=== PATIENT | female | born 1950 | race Caucasian/White ===

== ENCOUNTER 2018-02-20 11:40 | Emergency (ER) | payer MEDICARE ==
[2018-02-20] MEDS ORDERED: Lidocaine 1% with EPINEPHrine 1:100,000 20 ML MDV INFILT ONE (11:41)
[2018-02-20] MEDS ORDERED: Amoxicillin/Clavulanate K 875-125 MG Tab PO ONE (17:17)
[2018-02-20] MEDS ORDERED: Acetaminophen/HYDROcodone 325-5 MG Tab PO ONE (17:18)
[2018-02-20 18:22] VITALS: BP 130/82
--- NOTE | 2018-02-22 14:01 | ER ---
DATE SEEN: 02/20/2018 HISTORY OF PRESENT ILLNESS: This is a 67-year-old woman, who comes in with a history of trying to remove a dog dish from her son"s Rottweiler while the Rottweiler was drinking. The Rottweiler became upset, and bit her on the left forearm. She has 4 significant lacerations. The patient has a history of mild obesity. Tetanus is up-to-date. She has 4 lacerations in a parallel fashion of 7 cm, 5 cm, 3 cm, and 3cm. PAST MEDICAL HISTORY: GERD, dyslipidemia, and hypertension. MEDICATIONS: 1. Simvastatin. 2. Omeprazole. 3. Losartan/hydrochlorothiazide (Hyzaar) 50/12.5. ALLERGIES: Grapefruit, oranges, and pineapple. Otherwise negative. PHYSICAL EXAMINATION: VITAL SIGNS: Blood pressure 124/73, heart rate 68, respirations 18, 95% pulse oximetry on room air, and 36.9 degrees centigrade. This is an 83.4 kg woman with a BMI of 37.2 kg/m2 (suggesting mild obesity). GENERAL: Comes in with a left forearm laceration. HEENT: Without abnormality. PERRLA intact. The patient wears glasses. Hearing is slightly decreased. LUNGS: Clear without rales, rhonchi, or wheezes. HEART: S1 and S2. No murmur. ABDOMEN: Soft. No guarding. No abdominal discomfort. The patient is short stature. EXTREMITIES: Without edema. Left upper extremity, radial and ulnar pulses are intact. Capillary refill of the fingers is normal. Flexion and extension of the elbow is normal, and forearm there is mild discomfort. Dorsum of the forearm has 4 lacerations, each of which are 7 cm, 5 cm, 3 cm, and another 3 cm. EMERGENCY ROOM COURSE: Her wounds extend down through the subcutaneous tissue down to the muscle. The muscle is lacerated. The wound was aggressively lavaged under a surgical scrub sink with running water and associated with Arcadio- Meghan scrub brush up to 8 minutes. Then it was removed and dried and then returned to the table, and then cleansed again and injected with lidocaine and epinephrine with infiltration. Once this was completed, she was again washed and cleansed, then rinsed, and then the subcutaneous tissue was reapproximated with 22 stitches of interrupted 4-0 Vicryl and a total of 18 surface stitches of 4-0 Ethilon. No complications. The patient received antibiotic Keflex 500 mg t.i.d. Elevate her arm. Advised to keep cool packs to the base of the swelling to decrease swelling and improve circulation. The patient is advised potential of the wound taking but could cause sluff, but I feel patient will do well. The patient is not a smoker. PLAN: The patient is to follow up with doctor in 3 to 5 days if there is any question, otherwise in 7 days. Because 5% to 10% of the dogs have Pasteurella multocida infection, the patient was treated with Augmentin 875 mg b.i.d., 20 tablets. DIAGNOSIS: Multiple lacerations with double-layered closure of all the lacerations. /[id number] BERTRAND/MERRICK CHAUDHRY
== END 2018-02-20 17:45 | disposition home or self-care (01) ==
LOC: FB.ED 11:40
DX: S51.852A Open bite of left forearm, initial encounter (principal); W54.0XXA Bitten by dog, initial encounter; K21.9 Gastro-esophageal reflux disease without esophagitis; E78.5 Hyperlipidemia, unspecified; Z91.018 Allergy to other foods; I10 Essential (primary) hypertension; Z79.899 Other long term (current) drug therapy
CPT/HCPCS: 12035; 99283; A9270; 12002

== ENCOUNTER 2020-07-11 06:40 | Inpatient (IN) | payer MEDICARE ==
[2020-07-11] MEDS ORDERED: ceFAZolin 2 GM in Premix Bag 1 BAG IV ONE (08:00)
[2020-07-11] MEDS: Lactated Ringers 1,000 ML IV SCH ×2 (08:00→18:20)
[2020-07-11] MEDS ORDERED: Rocuronium 50 MG/5 ML Vial IV ONE ×2 (08:30→14:00)
[2020-07-11] MEDS ORDERED: Acetaminophen 1,000 MG/100 ML Infusion Bottle Premix IV ONE (08:30)
[2020-07-11] MEDS ORDERED: fentaNYL 100 MCG/2 ML SDV IV ONE (08:30)
[2020-07-11] MEDS ORDERED: Ondansetron 4 MG/2 ML SDV IVPUSH ONE (08:30)
[2020-07-11] MEDS ORDERED: Midazolam 1 MG/ML 2 ML SDV IV ONE ×2 (08:30→14:00)
[2020-07-11] MEDS ORDERED: HYDROmorphone 2 MG/ML SDV IV ONE (08:30)
[2020-07-11] MEDS ORDERED: Propofol 200 MG/20 ML SDV IV ONE ×2 (08:30→14:00)
[2020-07-11] MEDS ORDERED: Lactated Ringers 1,000 ML IV ONE ×2 (08:30→12:20)
[2020-07-11] MEDS ORDERED: Sugammadex Sodium 200 MG/2 ML VIAL IV ONE ×2 (08:30→14:00)
[2020-07-11] MEDS ORDERED: Ketorolac 30 MG/ML SDV IVPUSH ONE (08:30)
[2020-07-11] MEDS ORDERED: Succinylcholine 200 MG/10 ML MDV IV ONE ×2 (08:30→14:00)
[2020-07-11] MEDS ORDERED: Lidocaine 1% with EPINEPHrine 1:100,000 20 ML MDV INJECT ONE ×2 (08:40→12:56)
[2020-07-11] MEDS ORDERED: Bupivacaine 0.5% 30 ML SDV INJECT ONE ×2 (08:40→12:56)
--- NOTE | 2020-07-11 09:17 | PCM.OPNOTE ---
- General Post-Op/Procedure Note Date of Surgery/Procedure: 07/11/20 Operative Procedure(s): incisional hernia repair with mesh Findings: main defect 6 cm several smaller ones noted for total length of 8 cm Pre Op Diagnosis: incisional hernia Post-Op Diagnosis: Same Anesthesia Technique: General ET Tube, Local (4 ml 1 % lido with epi/0.5% buvipicaine) Primary Surgeon: Jose Mckenna Anesthesia Provider: Dayanara Bourgeois Pathology: none EBL in mLs: 5 Complications: None Condition: Good Free Text/Narrative:: see dictation
[2020-07-11] MEDS ORDERED: Sodium Chloride 0.9% 500 ML IV ONE (12:20)
[2020-07-11] MEDS ORDERED: ePHEDrine 50 MG/ML SDV IV ONE (12:20)
[2020-07-11] MEDS ORDERED: Sodium Chloride 0.9% 1,000 ML IV ONE (12:20)
[2020-07-11] MEDS ORDERED: ceFAZolin 1 GM Vial IV ONE (13:20)
[2020-07-11] MEDS ORDERED: Naloxone 0.4 MG/ML SDV IVPUSH PRN (14:09)
[2020-07-11] MEDS ORDERED: Ondansetron 4 MG/2 ML SDV IVPUSH PRN (14:09)
--- NOTE | 2020-07-11 14:17 | PCM.OPNOTE ---
- General Post-Op/Procedure Note Date of Surgery/Procedure: 07/11/20 Operative Procedure(s): ex lap with removal of mesh. removal of omentum. primary closure Findings: appeared to have had an omental bleed which had stopped. Mesh was removed. Pre Op Diagnosis: post op bleeding Post-Op Diagnosis: omental bleed Anesthesia Technique: General ET Tube, Local (18 ml 1 % lido with epi) Primary Surgeon: Jose Mckenna Anesthesia Provider: Dayanara Bourgeois Pathology: none sent EBL in mLs: 300 (old blood ) Complications: None Condition: Good
--- NOTE | 2020-07-11 14:33 | OR ---
DATE OF OPERATION: 07/11/2020 SURGEON: Jose Mckenna MD PROCEDURE PERFORMED: Incisional hernia repair. PREOPERATIVE DIAGNOSIS: Incisional hernia. POSTOPERATIVE DIAGNOSIS: Incisional hernia. INDICATIONS FOR PROCEDURE: Mrs. Uriostegui is a 69-year-old white female, who is status post a nephrectomy for renal cancer. She has developed an incisional hernia at the specimen removal site. She was offered and accepted repair. INTRAOPERATIVE FINDINGS: The main defect itself measured 6 cm. There were several smaller areas that had bridges of normal fascia that, when connected, the total defect measured 8 cm in diameter. This was repaired with a Ventrio ST hernia patch, reference #[id number], lot #[id number], with an expiration date of 01/05/2021, and this was a 13.8 x 17.8 cm oval hernia patch. DESCRIPTION OF PROCEDURE: After an excellent general anesthetic was administered via endotracheal tube, the patient was prepped and draped in the usual sterile manner. 4 mL of a 1:1 mixture was used to infiltrate the planned incision site. A 10 cm incision was then made using a #10 scalpel blade. The underlying subcu fat was divided using electrocautery, and the main hernia sac was exposed. Careful dissection was carried out, dissecting the hernia sac down to the midline fascia. The sac was opened, and the fascia was grasped. The adhered fat was removed from the hernia sac, and the hernia sac was then transected from the anterior abdominal wall. This allowed us to place clamps on the remaining fascia and carefully mobilize and free up the attached omentum from the anterior abdominal wall, giving us a good clean fascia to which to attach our mesh. Inferiorly, there were several Macanese cheese-like lesions that were in the fascia which were opened up. After completely mobilizing and cleaning off the fat from the anterior abdominal wall, the patch was then inserted into the patient's peritoneal cavity. This was then tacked into position using the Stat Tacker. The fascial defect was then closed with a running 0 Prolene, incorporating the mesh as well, and in the process of closing this, we did use more tackers to tack the mesh to the anterior abdominal wall as we closed the fascial defect. The fat was then approximated with a running 3-0 Vicryl. Joshua were used to close the skin. Needle, sponge, and instrument counts were reported as correct. The patient was taken to the recovery room in good condition. /[id number] /MODTrudy
--- NOTE | 2020-07-11 15:15 | OR ---
DATE OF OPERATION: 07/11/2020 SURGEON: Jose Mckenna MD PROCEDURES PERFORMED: Exploratory laparotomy, removal of previously placed mesh, and excision of omentum. PREOPERATIVE DIAGNOSIS: Postoperative bleeding. POSTOPERATIVE DIAGNOSIS: Postoperative bleeding. INDICATIONS FOR PROCEDURE: Ms. Uriostegui is a 69-year-old white female who underwent an incisional hernia repair earlier today. Postoperative course has been notable for some pain and difficulty keeping her pain under control. As she was getting up to go to the bathroom this afternoon, she was noted to have a gush of blood from her incision site, as well as development of some hypotension. On opening the wound in the same-day surgery area, she was noted to have some active oozing from the wound itself that did not appear to be superficial. She was therefore taken back to the operating room. She also had a small bout of hypotension, which responded nicely to a bolus of normal saline, as well as some ephedrine, prior to taking her back to the operating room. Please see the anesthesia note for further details. DESCRIPTION OF OPERATION: After an excellent general anesthetic was administered via endotracheal tube, the patient was prepped and draped in usual sterile manner. The wound, which had been packed, had the packing removed prior to prepping the wound. We started the procedure by opening up the fascia, which had been closed with 0 Prolene. There was some oozing that I noted. Of note, while the mesh had been tacked to the anterior abdominal wall on the left lateral side, this appeared to have avulsed, possibly when the patient was shifting, and she had some omentum that had managed to work its way between the mesh and the anterior abdominal wall. On noting this, we elected to completely remove the mesh, which was done without difficulty. At this point, we noted the omentum underneath with what appeared to be old clot. The omentum was mobilized and delivered out of the abdominal cavity, and careful inspection revealed several points that appeared to have been bleeding, but were not actively bleeding. Using the LigaSure, this section of the omentum was completely excised. We then turned our attention to the anterior abdominal cavity, where old blood was removed, and the remainder of the abdominal cavity was irrigated until clear and then packed with clean lap pads. Further inspection revealed that there was no further evidence of any bleeding. We elected at this point not to place the mesh, as I was concerned about possible infection of the mesh. Given the marginality of her fascia and the fact that we did not have any readily available BioMesh to use an overlay or in the repair, we elected to place some retention sutures to aid with closure. This was done by placing 4 interrupted #1 Ethibonds full thickness through the abdominal wall, dividing the incision into quarters. The fascia, such as that was, was then approximated to itself with a running #1 PDS. On the right lateral side, the quality of the fascia was marginal at best, but we were able to get what appeared to be good approximation of fascial tissue running suture together. Having completed this, we then tied the retention sutures and placed the knots into the bolsters and then the skin was closed with interrupted carlotta. Needle, sponge, and instrument counts were reported as correct prior to closure of the skin. 18 mL of a 1:1 mixture of 1% lidocaine with epinephrine and 0.5% bupivacaine was used to infiltrate the fascia wall as well to help with postop pain control. /[id number] /MODL
[2020-07-11] MEDS: fentaNYL/Normal Saline 300 MCG/30 ML PCA Vial IV SCH (16:08)
[2020-07-11] MEDS: Sodium Chloride 0.9% 10 ML Syringe FLUSH PRN ×2 (16:27→16:28)
[2020-07-12] MEDS: Lactated Ringers 1,000 ML IV SCH ×3 (02:06→18:36)
--- NOTE | 2020-07-12 08:18 | PCM.SURGPN ---
- General Info Date of Service: 07/12/20 POD#: 1 Functional Status: Reports: Ambulating, Urinating - Review of Systems General: Reports: No Symptoms Gastrointestinal: Reports: Abdominal Pain - Patient Data Vitals - Most Recent: Last Vital Signs Temp 98.5 F 07/12/20 05:00 Pulse 96 07/12/20 05:00 Resp 20 07/12/20 05:00 BP 131/74 07/12/20 05:00 Pulse Ox 97 07/12/20 05:00 Weight - Most Recent: 88.632 kg I&O - Last 24 Hours: Intake & Output 07/11/20 07/12/20 07/12/20 22:59 06:59 14:59 Intake Total 572 763 Output Total 450 400 Balance 122 363 Lab Results Last 24 Hrs: Laboratory Results - last 24 hr 07/11/20 07/11/20 07/12/20 Range/Units 12:58 12:58 05:50 WBC 18.1 H (4.5-12.0) X10-3/uL RBC 2.91 L (3.23-5.20) x10(6)uL Hgb 9.5 L 8.3 L (11.5-15.5) g/dL Hct 29.6 L 25.1 L (30.0-51.3) % MCV 86.5 (80-96) fL MCH 28.7 (27.7-33.6) pg MCHC 33.2 (32.2-35.4) g/dL RDW 14.0 (11.5-15.5) % Plt Count 271 (125-369) X10(3)uL MPV 7.4 (7.4-10.4) fL Add Manual Diff Yes Neutrophils % (Manual) 86 H (46-82) % Lymphocytes % (Manual) 11 L (13-37) % Monocytes % (Manual) 1 L (4-12) % Eosinophils % (Manual) 2 (0-5) % Sodium 141 (135-145) mmol/L Potassium 4.2 (3.5-5.3) mmol/L Chloride 105 (100-110) mmol/L Carbon Dioxide 27 (21-32) mmol/L BUN 16 (7-18) mg/dL Creatinine 1.9 H (0.55-1.02) mg/dL Est Cr Clr Drug Dosing 19.51 mL/min Estimated GFR (MDRD) 26 L (>60) BUN/Creatinine Ratio 8.4 L (9-20) Glucose 166 H (80-116) mg/dL Calcium 8.2 L (8.6-10.2) mg/dL Med Orders - Current: Current Medications Hydrocodone Bitart/Acetaminophen ([place] 325-5 Mg) 1 tab PO Q4H PRN PRN Reason: Pain Fentanyl Citrate (Fentanyl In Ns 300 Mcg/30 Ml Medical Claims Representative) 0 mcg IV ASDIRECTED [facility]; Pr otocol Last Admin: 07/11/20 16:08 Dose: 300 mcg Documented by: Hydroxyzine Pamoate (Vistaril) 50 mg PO ONETIME PRN PRN Reason: Pain Lactated Ringer's (Ringers, Lactated) 1,000 mls @ 125 mls/hr IV ASDIRECTED [facility] Last Admin: 07/12/20 02:06 Dose: 125 mls/hr Documented by: Naloxone HCl (Narcan) 0.4 mg IVPUSH Q2M PRN PRN Reason: Respiratory Distress Ondansetron HCl (Zofran) 4 mg IVPUSH Q6H PRN PRN Reason: Nausea/Vomiting Sodium Chloride (Saline Flush) 10 ml FLUSH ASDIRECTED PRN PRN Reason: Keep Vein Open Last Admin: 07/11/20 16:28 Dose: 10 ml Documented by: Discontinued Medications Bupivacaine HCl (Marcaine 0.5%) 10 ml INJECT .STK-MED ONE Stop: 07/11/20 08:41 Last Admin: 07/11/20 08:40 Dose: 10 ml Documented by: Bupivacaine HCl (Marcaine 0.5%) 10 ml INJECT .STK-MED ONE Stop: 07/11/20 12:57 Last Admin: 07/11/20 12:56 Dose: 10 ml Documented by: Cefazolin Sodium/Dextrose 2 gm (/ Premix) 50 mls @ 100 mls/hr IV ONETIME ONE Stop: 07/11/20 08:29 Last Admin: 07/11/20 08:16 Dose: 100 mls/hr Documented by: Lidocaine/Epinephrine (Xylocaine 1% With Epinephrine 1:100,000) 10 ml INJECT .STK-MED ONE Stop: 07/11/20 08:41 Last Admin: 07/11/20 08:40 Dose: 10 ml Documented by: Lidocaine/Epinephrine (Xylocaine 1% With Epinephrine 1:100,000) 10 ml INJECT .STK-MED ONE Stop: 07/11/20 12:57 Last Admin: 07/11/20 12:56 Dose: 10 ml Documented by: - Exam Wound/Incisions: Dressing Dry and Intact General: Alert, Oriented, Cooperative, Mild Distress Lungs: Clear to Auscultation, Normal Respiratory Effort Cardiovascular: Regular Rate, Regular Rhythm GI/Abdominal Exam: Normal Bowel Sounds, Tender (over incision site ) Sepsis Event Note - Evaluation Sepsis Screening Result: No Definite Risk - Focused Exam Vital Signs: Vital Signs Temp Pulse Resp BP Pulse Ox Pulse Ox 07/12/20 05:00 98.5 F 96 20 131/74 97 07/12/20 01:40 98.4 F 96 18 128/78 95 07/11/20 23:15 97.9 F 87 18 129/84 93 L 07/11/20 21:00 92 L 07/11/20 20:30 98 F 85 20 144/79 H 93 L 93 L - Problem List & Annotations (1) Incisional hernia of anterior abdominal wall without obstruction or gangrene SNOMED Code(s): 807036729 Code(s): K43.2 - INCISIONAL HERNIA WITHOUT OBSTRUCTION OR GANGRENE Status: Acute Current Visit: Yes - Problem List Review Problem List Initiated/Reviewed/Updated: Yes - My Orders Last 24 Hours: Active Orders 24 hr Category Date Time Status Ambulate [RC] .TID Care 07/11/20 14:11 Active Communication Order [RC] 00,08,16 Care 07/11/20 14:09 Active Intake and Output [RC] 06,14,22 Care 07/11/20 14:11 Active Notify Provider Vital Signs [RC] PRN Care 07/11/20 14:12 Active Notify Provider [RC] PRN Care 07/11/20 14:09 Active Oxygen Therapy [RC] 00,08,16 Care 07/11/20 14:10 Active PATIENT SERVICES COORDINATOR Record [RC] PER UNIT ROUTINE Care 07/11/20 14:09 Active Pulse Oximetry [RC] CONTINUOUS Care 07/11/20 14:09 Active RT Incentive Spirometry [RC] Q2HWA Care 07/11/20 14:09 Active Ready for Discharge [RC] .PRN Care 07/11/20 09:19 Active Vital Signs [RC] Q4HR Care 07/11/20 14:10 Active Acetaminophen/HYDROcodone [[place] 325-5 MG] Med 07/11/20 09:21 Active 1 tab PO Q4H PRN Naloxone [Narcan] Med 07/11/20 14:09 Active 0.4 mg IVPUSH Q2M PRN Ondansetron [Zofran] Med 07/11/20 14:09 Active 4 mg IVPUSH Q6H PRN fentaNYL/Normal Saline [fentaNYL in NS 300 MCG/30 ML Med 07/11/20 14:30 Active PATIENT SERVICES COORDINATOR] See Protocol IV ASDIRECTED hydrOXYzine pamoate [Vistaril] Med 07/11/20 09:21 Active 50 mg PO ONETIME PRN Abdominal Binder [OM.PC] Per Unit Routine Oth 07/11/20 14:11 Ordered Medication Discontinuation Instructions [OM.PC] Stat Oth 07/11/20 14:09 Ordered Medication Orders Hydrocodone Bitart/Acetaminophen ([place] 325-5 Mg) 1 tab PO Q4H PRN PRN Reason: Pain Fentanyl Citrate (Fentanyl In Ns 300 Mcg/30 Ml Medical Claims Representative) 0 mcg IV ASDIRECTED [facility]; Protocol Last Admin: 07/11/20 16:08 Dose: 300 mcg Documented by: SANDRA Hydroxyzine Pamoate (Vistaril) 50 mg PO ONETIME PRN PRN Reason: Pain Lactated Ringer's (Ringers, Lactated) 1,000 mls @ 125 mls/hr IV ASDIRECTED [facility] Last Admin: 07/12/20 02:06 Dose: 125 mls/hr Documented by: Infusion: 07/12/20 02:06 Dose: 125 mls/hr Documented by: Admin: 07/11/20 18:20 Dose: 125 mls/hr Documented by: Infusion: 07/11/20 16:00 Dose: 125 mls/hr Documented by: Admin: 07/11/20 08:00 Dose: 125 mls/hr Documented by: HOLLIE Naloxone HCl (Narcan) 0.4 mg IVPUSH Q2M PRN PRN Reason: Respiratory Distress Ondansetron HCl (Zofran) 4 mg IVPUSH Q6H PRN PRN Reason: Nausea/Vomiting Sodium Chloride (Saline Flush) 10 ml FLUSH ASDIRECTED PRN PRN Reason: Keep Vein Open Last Admin: 07/11/20 16:28 Dose: 10 ml Documented by: [id number] Admin: 07/11/20 16:27 Dose: 10 ml Documented by: MILDRED - Assessment Assessment (Free Text/Narrative):: stable exam. hungry today pain control still appears to be an issue
[2020-07-12] MEDS: fentaNYL/Normal Saline 300 MCG/30 ML PCA Vial IV SCH (15:01)
--- NOTE | 2020-07-12 16:58 | PCM.SN.2 ---
- Free Text/Narrative Note: Pt complains about pain but admits that she is not using the ACCESS SPECIALIST. apparently has gotten up to urinate. It was stressed the importance of needing to move which will help her to feel better. It was also stressed that she need to use the ACCESS SPECIALIST to help with her pain.
[2020-07-12] MEDS ORDERED: LORazepam 2 MG/ML SDV IVPUSH PRN (17:00)
[2020-07-12] MEDS: Sodium Chloride 0.9% 10 ML Syringe FLUSH PRN (23:30)
[2020-07-13] MEDS: Lactated Ringers 1,000 ML IV SCH ×2 (02:55→15:32)
[2020-07-13] MEDS: fentaNYL/Normal Saline 300 MCG/30 ML PCA Vial IV SCH (04:05)
--- NOTE | 2020-07-13 08:23 | PCM.SURGPN ---
- General Info Date of Service: 07/13/20 POD#: 2 Functional Status: Reports: Pain Controlled, Tolerating Diet, Ambulating, Urinating - Review of Systems General: Reports: Other (low grade today ) Pulmonary: Reports: No Symptoms Gastrointestinal: Reports: Abdominal Pain (much better than yesterday ) - Patient Data Vitals - Most Recent: Last Vital Signs Temp 98.8 F 07/13/20 04:00 Pulse 88 07/13/20 04:00 Resp 20 07/13/20 04:00 BP 124/73 07/13/20 04:00 Pulse Ox 92 L 07/13/20 04:00 Weight - Most Recent: 88.632 kg I&O - Last 24 Hours: Intake & Output 07/12/20 07/13/20 07/13/20 22:59 06:59 14:59 Intake Total 1090 1075 Output Total 400 300 Balance 690 775 Med Orders - Current: Current Medications Hydrocodone Bitart/Acetaminophen ([place] 325-5 Mg) 1 tab PO Q4H PRN PRN Reason: Pain Fentanyl Citrate (Fentanyl In Ns 300 Mcg/30 Ml Client Executive) 0 mcg IV ASDIRECTED [facility]; Protocol Stop: 07/13/20 10:00 Last Admin: 07/13/20 04:05 Dose: 300 mcg Documented by: Hydroxyzine Pamoate (Vistaril) 50 mg PO ONETIME PRN PRN Reason: Pain Lactated Ringer's (Ringers, Lactated) 1,000 mls @ 50 mls/hr IV ASDIRECTED [facility] Last Admin: 07/13/20 02:55 Dose: 125 mls/hr Documented by: Lorazepam (Ativan) 1 mg IVPUSH Q6H PRN PRN Reason: Pain Naloxone HCl (Narcan) 0.4 mg IVPUSH Q2M PRN PRN Reason: Respiratory Distress Ondansetron HCl (Zofran) 4 mg IVPUSH Q6H PRN PRN Reason: Nausea/Vomiting Sodium Chloride (Saline Flush) 10 ml FLUSH ASDIRECTED PRN PRN Reason: Keep Vein Open Last Admin: 07/12/20 23:30 Dose: 10 ml Documented by: Discontinued Medications Bupivacaine HCl (Marcaine 0.5%) 10 ml INJECT .STK-MED ONE Stop: 07/11/20 08:41 Last Admin: 07/11/20 08:40 Dose: 10 ml Documented by: Bupivacaine HCl (Marcaine 0.5%) 10 ml INJECT .STK-MED ONE Stop: 07/11/20 12:57 Last Admin: 07/11/20 12:56 Dose: 10 ml Documented by: Cefazolin Sodium/Dextrose 2 gm (/ Premix) 50 mls @ 100 mls/hr IV ONETIME ONE Stop: 07/11/20 08:29 Last Admin: 07/11/20 08:16 Dose: 100 mls/hr Documented by: Lidocaine/Epinephrine (Xylocaine 1% With Epinephrine 1:100,000) 10 ml INJECT .STK-MED ONE Stop: 07/11/20 08:41 Last Admin: 07/11/20 08:40 Dose: 10 ml Documented by: Lidocaine/Epinephrine (Xylocaine 1% With Epinephrine 1:100,000) 10 ml INJECT .S TK-MED ONE Stop: 07/11/20 12:57 Last Admin: 07/11/20 12:56 Dose: 10 ml Documented by: - Exam Wound/Incisions: Healing Well, Dressing Dry and Intact. No: Erythema General: Alert, Oriented, Cooperative, No Acute Distress Lungs: Clear to Auscultation, Normal Respiratory Effort Cardiovascular: Regular Rate, Regular Rhythm GI/Abdominal Exam: Normal Bowel Sounds, Soft, Non-Tender Sepsis Event Note - Evaluation Sepsis Screening Result: No Definite Risk - Focused Exam Vital Signs: Vital Signs Temp Pulse Resp BP Pulse Ox Pulse Ox 07/13/20 04:00 98.8 F 88 20 124/73 92 L 07/12/20 23:56 92 L 07/12/20 23:52 99.0 F 90 20 112/67 92 L - Problem List & Annotations (1) Incisional hernia of anterior abdominal wall without obstruction or gangrene SNOMED Code(s): 556575638 Code(s): K43.2 - INCISIONAL HERNIA WITHOUT OBSTRUCTION OR GANGRENE Status: Acute Current Visit: Yes - Problem List Review Problem List Initiated/Reviewed/Updated: Yes - My Orders Last 24 Hours: Active Orders 24 hr Category Date Time Status Admission Status [Patient Status] [ADT] Routine ADT 07/12/20 11:02 Active Regular Diet [DIET] Diet 07/13/20 Lunch Ordered LORazepam [Ativan] Med 07/12/20 17:00 Active 1 mg IVPUSH Q6H PRN Medication Orders Hydrocodone Bitart/Acetaminophen ([place] 325-5 Mg) 1 tab PO Q4H PRN PRN Reason: Pain Fentanyl Citrate (Fentanyl In Ns 300 Mcg/30 Ml Client Executive) 0 mcg IV ASDIRECTED [facility]; Protocol Stop: 07/13/20 10:00 Last Admin: 07/13/20 04:05 Dose: 300 mcg Documented by: Admin: 07/12/20 15:01 Dose: 300 mcg Documented by: Admin: 07/11/20 16:08 Dose: 300 mcg Documented by: SANDRA Hydroxyzine Pamoate (Vistaril) 50 mg PO ONETIME PRN PRN Reason: Pain Lactated Ringer's (Ringers, Lactated) 1,000 mls @ 50 mls/hr IV ASDIRECTED [facility] Last Admin: 07/13/20 02:55 Dose: 125 mls/hr Documented by: Infusion: 07/13/20 02:36 Dose: 125 mls/hr Documented by: Admin: 07/12/20 18:36 Dose: 125 mls/hr Documented by: Infusion: 07/12/20 18:27 Dose: 125 mls/hr Documented by: Admin: 07/12/20 10:27 Dose: 125 mls/hr Documented by: Infusion: 07/12/20 10:06 Dose: 125 mls/hr Documented by: Admin: 07/12/20 02:06 Dose: 125 mls/hr Documented by: Infusion: 07/12/20 02:06 Dose: 125 mls/hr Documented by: Admin: 07/11/20 18:20 Dose: 125 mls/hr Documented by: Infusion: 07/11/20 16:00 Dose: 125 mls/hr Documented by: Admin: 07/11/20 08:00 Dose: 125 mls/hr Documented by: HOLLIE Lorazepam (Ativan) 1 mg IVPUSH Q6H PRN PRN Reason: Pain Naloxone HCl (Narcan) 0.4 mg IVPUSH Q2M PRN PRN Reason: Respiratory Distress Ondansetron HCl (Zofran) 4 mg IVPUSH Q6H PRN PRN Reason: Nausea/Vomiting Sodium Chloride (Saline Flush) 10 ml FLUSH ASDIRECTED PRN PRN Reason: Keep Vein Open Last Admin: 07/12/20 23:30 Dose: 10 ml Documented by: Admin: 07/11/20 16:28 Dose: 10 ml Documented by: Admin: 07/11/20 16:27 Dose: 10 ml Documented by: MILDRED - Assessment Assessment (Free Text/Narrative):: marked improvement on exam today. will continue to push ambulation and incentive spirometry. advance diet decrease IVF rate dc product management intern oral pain meds
[2020-07-13] MEDS: Acetaminophen/HYDROcodone 325-5 MG Tab PO PRN ×2 (12:54→17:21)
[2020-07-13] MEDS: Furosemide 20 MG Tab**OWN MED PO SCH (13:23)
[2020-07-13] MEDS: amLODIPine 5 MG Tab PO SCH (13:25)
[2020-07-13] MEDS: Metoprolol Succinate 25 MG Tab.ER PO SCH (13:25)
[2020-07-13] MEDS: OMEPRAZOLE 20 MG PO SCH (13:26)
[2020-07-13] MEDS: Anastrozole 1 MG Tab PO SCH (13:26)
[2020-07-13] MEDS ORDERED: Ketorolac 30 MG/ML SDV IVPUSH SCH (18:30)
[2020-07-13] MEDS: Ketorolac 15 MG/ML SDV IVPUSH SCH (18:56)
[2020-07-14] MEDS: Ketorolac 15 MG/ML SDV IVPUSH SCH ×4 (01:13→19:33)
[2020-07-14] MEDS: Acetaminophen/HYDROcodone 325-5 MG Tab PO PRN ×4 (01:18→19:48)
[2020-07-14] MEDS: Sodium Chloride 0.9% 10 ML Syringe FLUSH PRN ×4 (05:30→19:37)
[2020-07-14] MEDS: Metoprolol Succinate 25 MG Tab.ER PO SCH (08:27)
[2020-07-14] MEDS: Furosemide 20 MG Tab**OWN MED PO SCH (08:27)
[2020-07-14] MEDS: OMEPRAZOLE 20 MG PO SCH (08:27)
[2020-07-14] MEDS: Anastrozole 1 MG Tab PO SCH (08:27)
[2020-07-14] MEDS: amLODIPine 5 MG Tab PO SCH (08:27)
--- NOTE | 2020-07-14 09:21 | PCM.SURGPN ---
- General Info Date of Service: 07/14/20 POD#: 3 - Review of Systems General: Reports: Other (Pt reports feeling much better today. pain is under control. Her big issue is maintaining an adequate O2 saturation. Noted no to have much of a reserve on induction and she relates that this has been an issue. ) Pulmonary: Reports: Other (low o2 sats ). Denies: Shortness of Breath, Wheezing Cardiovascular: Reports: No Symptoms Gastrointestinal: Reports: No Symptoms - Patient Data Vitals - Most Recent: Last Vital Signs Temp 99.1 F 07/14/20 05:00 Pulse 83 07/14/20 08:27 Resp 20 07/14/20 05:00 BP 122/67 07/14/20 08:27 Pulse Ox 90 L 07/14/20 05:00 Weight - Most Recent: 88.632 kg I&O - Last 24 Hours: Intake & Output 07/13/20 07/14/20 07/14/20 22:59 06:59 14:59 Intake Total 430 480 Output Total 700 250 Balance -270 230 Med Orders - Current: Current Medications Hydrocodone Bitart/Acetaminophen ([place] 325-5 Mg) 1 tab PO Q4H PRN PRN Reason: Pain Last Admin: 07/14/20 08:26 Dose: 1 tab Documented by: Amlodipine Besylate (Norvasc) 5 mg PO DAILY [facility] Last Admin: 07/14/20 08:27 Dose: 5 mg Documented by: Anastrozole (Arimidex) 1 mg PO DAILY [facility] Last Admin: 07/14/20 08:27 Dose: 1 mg Documented by: Furosemide (Lasix) 20 mg PO DAILY [facility] Last Admin: 07/14/20 08:27 Dose: 20 mg Documented by: Hydroxyzine Pamoate (Vistaril) 50 mg PO ONETIME PRN PRN Reason: Pain Ketorolac Tromethamine (Toradol) 15 mg IVPUSH Q6H [facility] Stop: 07/18/20 18:46 Last Admin: 07/14/20 06:46 Dose: 15 mg Documented by: Lorazepam (Ativan) 1 mg IVPUSH Q6H PRN PRN Reason: Pain Metoprolol Succinate (Toprol Xl) 25 mg PO DAILY [facility] Last Admin: 07/14/20 08:27 Dose: 25 mg Documented by: Naloxone HCl (Narcan) 0.4 mg IVPUSH Q2M PRN PRN Reason: Respiratory Distress Omeprazole [ Omeprazole] 20 Mg Own Med 20 mg PO ACBREAKFAST [facility] Last Admin: 07/14/20 08:27 Dose: 20 mg Documented by: Ondansetron HCl (Zofran) 4 mg IVPUSH Q6H PRN PRN Reason: Nausea/Vomiting Sodium Chloride (Saline Flush) 10 ml FLUSH ASDIRECTED PRN PRN Reason: Keep Vein Open Last Admin: 07/14/20 05:30 Dose: 10 ml Documented by: Discontinued Medications Bupivacaine HCl (Marcaine 0.5%) 10 ml INJECT .STK-MED ONE Stop: 07/11/20 08:41 Last Admin: 07/11/20 08:40 Dose: 10 ml Documented by: Bupivacaine HCl (Marcaine 0.5%) 10 ml INJECT .STK-MED ONE Stop: 07/11/20 12:57 Last Admin: 07/11/20 12:56 Dose: 10 ml Documented by: Fentanyl Citrate (Fentanyl In Ns 300 Mcg/30 Ml Knitting Machine Tender) 0 mcg IV ASDIRECTED [facility]; Protocol Stop: 07/13/20 10:00 Last Admin: 07/13/20 04:05 Dose: 300 mcg Documented by: Lactated Ringer's (Ringers, Lactated) 1,000 mls @ 50 mls/hr IV ASDIRECTED [facility] Last Admin: 07/13/20 15:32 Dose: 50 mls/hr Documented by: Cefazolin Sodium/Dextrose 2 gm (/ Premix) 50 mls @ 100 mls/hr IV ONETIME ONE Stop: 07/11/20 08:29 Last Admin: 07/11/20 08:16 Dose: 100 mls/hr Documented by: Ketorolac Tromethamine (Toradol) 30 mg IVPUSH Q6H [facility] Stop: 07/18/20 18:24 Last Admin: 07/13/20 22:02 Dose: Not Given Documented by: Lidocaine/Epinephrine (Xylocaine 1% With Epinephrine 1:100,000) 10 ml INJECT .STK-MED ONE Stop: 07/11/20 08:41 Last Admin: 07/11/20 08:40 Dose: 10 ml Documented by: Lidocaine/Epinephrine (Xylocaine 1% With Epinephrine 1:100,000) 10 ml INJECT .STK-MED ONE Stop: 07/11/20 12:57 Last Admin: 07/11/20 12:56 Dose: 10 ml Documented by: - Exam Wound/Incisions: Healing Well, Dressing Dry and Intact General: Alert, Oriented, Cooperative, No Acute Distress Lungs: Clear to Auscultation, Normal Respiratory Effort Cardiovascular: Regular Rate, Regular Rhythm GI/Abdominal Exam: Normal Bowel Sounds, Soft, Tender (at incision site ) Skin: Warm, Dry, Intact Sepsis Event Note - Evaluation Sepsis Screening Result: No Definite Risk - Focused Exam Vital Signs: Vital Signs Temp Pulse Pulse Resp BP BP Pulse Ox 07/14/20 08:27 83 122/67 07/14/20 05:00 99.1 F 80 20 133/72 90 L 07/14/20 01:00 07/14/20 00:00 97.8 F 80 20 122/68 93 L Pulse Ox 07/14/20 08:27 07/14/20 05:00 07/14/20 01:00 95 07/14/20 00:00 - Problem List & Annotations (1) Incisional hernia of anterior abdominal wall without obstruction or gangrene SNOMED Code(s): 919999389 Code(s): K43.2 - INCISIONAL HERNIA WITHOUT OBSTRUCTION OR GANGRENE Status: Acute Current Visit: Yes - Problem List Review Problem List Initiated/Reviewed/Updated: Yes - My Orders Last 24 Hours: Active Orders 24 hr Category Date Time Status Daily Weight [Height and Weight] [RC] DAILY Care 07/14/20 09:10 Ordered Dressing Change [Wound Care] [RC] DAILY Care 07/14/20 09:10 Ordered Regular Diet [DIET] Diet 07/13/20 Lunch Active Chest 2V [CR] Routine Exams 07/14/20 09:09 Ordered BASIC METABOLIC PANEL,BMP [CHEM] Routine Lab 07/14/20 09:13 Ordered CBC WITH AUTO DIFF [HEME] Routine Lab 07/14/20 09:13 Ordered Anastrozole [Arimidex] Med 07/13/20 13:30 Active 1 mg PO DAILY Furosemide [Lasix] Med 07/13/20 09:00 Active 20 mg PO DAILY Ketorolac [Toradol] Med 07/13/20 18:45 Active 15 mg IVPUSH Q6H Metoprolol Succinate [Toprol XL] Med 07/13/20 13:30 Active 25 mg PO DAILY Omeprazole [Omeprazole] Med 07/13/20 13:30 Active 20 mg PO ACBREAKFAST amLODIPine [Norvasc] Med 07/13/20 13:30 Active 5 mg PO DAILY Convert IV to Saline Lock [OM.PC] Routine Oth 07/14/20 09:14 Ordered Medication Orders Hydrocodone Bitart/Acetaminophen ([place] 325-5 Mg) 1 tab PO Q4H PRN PRN Reason: Pain Last Admin: 07/14/20 08:26 Dose: 1 tab Documented by: Admin: 07/14/20 01:18 Dose: 1 tab Documented by: Admin: 07/13/20 17:21 Dose: 1 tab Documented by: Admin: 07/13/20 12:54 Dose: 1 tab Documented by: AURELIO Amlodipine Besylate (Norvasc) 5 mg PO DAILY [facility] Last Admin: 07/14/20 08:27 Dose: 5 mg Documented by: Admin: 07/13/20 13:25 Dose: 5 mg Documented by: AURELIO Anastrozole (Arimidex) 1 mg PO DAILY [facility] Last Admin: 07/14/20 08:27 Dose: 1 mg Documented by: Admin: 07/13/20 13:26 Dose: 1 mg Documented by: AURELIO Furosemide (Lasix) 20 mg PO DAILY [facility] Last Admin: 07/14/20 08:27 Dose: 20 mg Documented by: Admin: 07/13/20 13:23 Dose: 20 mg Documented by: [id number] Hydroxyzine Pamoate (Vistaril) 50 mg PO ONETIME PRN PRN Reason: Pain Ketorolac Tromethamine (Toradol) 15 mg IVPUSH Q6H [facility] Stop: 07/18/20 18:46 Last Admin: 07/14/20 06:46 Dose: 15 mg Documented by: Admin: 07/14/20 01:13 Dose: 15 mg Documented by: Admin: 07/13/20 18:56 Dose: 15 mg Documented by: BARBARA Lorazepam (Ativan) 1 mg IVPUSH Q6H PRN PRN Reason: Pain Metoprolol Succinate (Toprol Xl) 25 mg PO DAILY [facility] Last Admin: 07/14/20 08:27 Dose: 25 mg Documented by: [id number] Admin: 07/13/20 13:25 Dose: 25 mg Documented by: [id number] Naloxone HCl (Narcan) 0.4 mg IVPUSH Q2M PRN PRN Reason: Respiratory Distress Omeprazole [ Omeprazole] 20 Mg Own Med 20 mg PO ACBREAKFAST [facility] Last Admin: 07/14/20 08:27 Dose: 20 mg Documented by: [id number] Admin: 07/13/20 13:26 Dose: 20 mg Documented by: [id number] Ondansetron HCl (Zofran) 4 mg IVPUSH Q6H PRN PRN Reason: Nausea/Vomiting Sodium Chloride (Saline Flush) 10 ml FLUSH ASDIRECTED PRN PRN Reason: Keep Vein Open Last Admin: 07/14/20 05:30 Dose: 10 ml Documented by: Admin: 07/12/20 23:30 Dose: 10 ml Documented by: [id number] Admin: 07/11/20 16:28 Dose: 10 ml Documented by: Admin: 07/11/20 16:27 Dose: 10 ml Documented by: [id number] - Assessment Assessment (Free Text/Narrative):: O2 sats appears to be an issue thought clinically she is looking the best that she has looked in days. - Plan Plan (Free Text/Narrative):: CXR this am. wt to see if she may be in any failure.
--- NOTE | 2020-07-14 09:54 | PCM.SN.2 ---
- Free Text/Narrative Note: cxr demonstrates no evidence of infiltrate. fluid overload. may have some atelectasis rll field. will empirically start some albuterol nebs
[2020-07-14] MEDS ORDERED: Sodium Chloride 0.9% 1,000 ML IV SCH (10:45)
[2020-07-14] MEDS: Albuterol 0.083% 2.5 MG/3 ML Neb Soln NEB SCH ×4 (10:46→22:09)
[2020-07-14] MEDS ORDERED: Sodium Chloride 0.9% 250 ML IV SCH (13:30)
[2020-07-15] MEDS: Ketorolac 15 MG/ML SDV IVPUSH SCH ×4 (01:06→18:18)
[2020-07-15] MEDS: Acetaminophen/HYDROcodone 325-5 MG Tab PO PRN ×4 (01:43→21:59)
[2020-07-15] MEDS: Sodium Chloride 0.9% 10 ML Syringe FLUSH PRN ×4 (01:44→18:20)
[2020-07-15] MEDS: Albuterol 0.083% 2.5 MG/3 ML Neb Soln NEB SCH ×6 (01:44→21:56)
[2020-07-15] MEDS: OMEPRAZOLE 20 MG PO SCH (07:48)
[2020-07-15] MEDS ORDERED: Furosemide 40 MG/4 ML VIAL IVPUSH ONE (09:26)
[2020-07-15] MEDS ORDERED: Metolazone 2.5 MG Tab PO ONE (09:29)
--- NOTE | 2020-07-15 10:02 | PCM.SURGPN ---
- General Info Date of Service: 07/15/20 POD#: 4 Functional Status: Reports: Pain Controlled, Tolerating Diet, Ambulating, Other (oxygenation continues to be an issue. did receive a unit yesterday of PRBC) - Review of Systems General: Reports: No Symptoms Pulmonary: Reports: No Symptoms Cardiovascular: Reports: No Symptoms Gastrointestinal: Reports: Abdominal Pain - Patient Data Vitals - Most Recent: Last Vital Signs Temp 98.2 F 07/15/20 05:00 Pulse 78 07/15/20 05:57 Resp 20 07/15/20 05:00 BP 155/84 H 07/15/20 05:00 Pulse Ox 93 L 07/15/20 05:00 Weight - Most Recent: 94.149 kg I&O - Last 24 Hours: Intake & Output 07/14/20 07/15/20 07/15/20 22:59 06:59 14:59 Intake Total 450 100 Output Total 520 447 7959 Balance 250 -150 -1200 Lab Results Last 24 Hrs: Laboratory Results - last 24 hr 07/14/20 Range/Units 09:25 Blood Type O POSITIVE Gel Antibody Screen Negative Crossmatch See Detail Med Orders - Current: Current Medications Hydrocodone Bitart/Acetaminophen ([place] 325-5 Mg) 1 tab PO Q4H PRN PRN Reason: Pain Last Admin: 07/15/20 07:04 Dose: 1 tab Documented by: Albuterol (Proventil Neb Soln) 2.5 mg NEB Q4H [facility] Last Admin: 07/15/20 05:45 Dose: 2.5 mg Documented by: Amlodipine Besylate (Norvasc) 5 mg PO DAILY [facility] Last Admin: 07/14/20 08:27 Dose: 5 mg Documented by: Anastrozole (Arimidex) 1 mg PO DAILY [facility] Last Admin: 07/14/20 08:27 Dose: 1 mg Documented by: Furosemide (Lasix) 20 mg PO BIDDIURETIC [facility] Hydroxyzine Pamoate (Vistaril) 50 mg PO ONETIME PRN PRN Reason: Pain Sodium Chloride (Normal Saline) 250 mls @ 100 mls/hr IV ASDIRECTED [facility] Last Admin: 07/14/20 13:38 Dose: 100 mls/hr Documented by: Ketorolac Tromethamine (Toradol) 15 mg IVPUSH Q6H [facility] Stop: 07/18/20 18:46 Last Admin: 07/15/20 06:56 Dose: 15 mg Documented by: Lorazepam (Ativan) 1 mg IVPUSH Q6H PRN PRN Reason: Pain Metoprolol Succinate (Toprol Xl) 25 mg PO DAILY [facility] Last Admin: 07/14/20 08:27 Dose: 25 mg Documented by: Naloxone HCl (Narcan) 0.4 mg IVPUSH Q2M PRN PRN Reason: Respiratory Distress Ondansetron HCl (Zofran) 4 mg IVPUSH Q6H PRN PRN Reason: Nausea/Vomiting Pantoprazole Sodium (Protonix) 40 mg PO ACBREAKFAST [facility] Sodium Chloride (Saline Flush) 10 ml FLUSH ASDIRECTED PRN PRN Reason: Keep Vein Open Last Admin: 07/15/20 01:44 Dose: 10 ml Documented by: Discontinued Medications Bupivacaine HCl (Marcaine 0.5%) 10 ml INJECT .STK-MED ONE Stop: 07/11/20 08:41 Last Admin: 07/11/20 08:40 Dose: 10 ml Documented by: Bupivacaine HCl (Marcaine 0.5%) 10 ml INJECT .STK-MED ONE Stop: 07/11/20 12:57 Last Admin: 07/11/20 12:56 Dose: 10 ml Documented by: Fentanyl Citrate (Fentanyl In Ns 300 Mcg/30 Ml Editor Greeting Card) 0 mcg IV ASDIRECTED [facility]; Protocol Stop: 07/13/20 10:00 Last Admin: 07/13/20 04:05 Dose: 300 mcg Documented by: Furosemide (Lasix) 20 mg PO DAILY [facility] Last Admin: 07/14/20 08:27 Dose: 20 mg Documented by: Furosemide (Lasix) 40 mg IVPUSH NOW ONE Stop: 07/15/20 09:27 Lactated Ringer's (Ringers, Lactated) 1,000 mls @ 50 mls/hr IV ASDIRECTED [facility] Last Admin: 07/13/20 15:32 Dose: 50 mls/hr Documented by: Cefazolin Sodium/Dextrose 2 gm (/ Premix) 50 mls @ 100 mls/hr IV ONETIME ONE Stop: 07/11/20 08:29 Last Admin: 07/11/20 08:16 Dose: 100 mls/hr Documented by: Sodium Chloride (Normal Saline) 1,000 mls @ 100 mls/hr IV ASDIRECTED [facility] Ketorolac Tromethamine (Toradol) 30 mg IVPUSH Q6H [facility] Stop: 07/18/20 18:24 Last Admin: 07/13/20 22:02 Dose: Not Given Documented by: Lidocaine/Epinephrine (Xylocaine 1% With Epinephrine 1:100,000) 10 ml INJECT .STK-MED ONE Stop: 07/11/20 08:41 Last Admin: 07/11/20 08:40 Dose: 10 ml Documented by: Lidocaine/Epinephrine (Xylocaine 1% With Epinephrine 1:100,000) 10 ml INJECT .STK-MED ONE Stop: 07/11/20 12:57 Last Admin: 07/11/20 12:56 Dose: 10 ml Documented by: Metolazone (Zaroxolyn) 2.5 mg PO ONETIME ONE Stop: 07/15/20 09:30 Omeprazole [ Omeprazole] 20 Mg Own Med 20 mg PO ACBREAKFAST [facility] Last Admin: 07/15/20 07:48 Dose: 20 mg Documented by: - Exam General: Alert, Oriented, Cooperative Lungs: Clear to Auscultation Cardiovascular: Regular Rate, Regular Rhythm GI/Abdominal Exam: Normal Bowel Sounds Sepsis Event Note - Evaluation Sepsis Screening Result: No Definite Risk - Focused Exam Vital Signs: Vital Signs Temp Pulse Resp BP Pulse Ox 07/15/20 05:57 78 07/15/20 05:00 98.2 F 81 20 155/84 H 93 L 07/15/20 02:00 80 07/15/20 00:00 98.4 F 75 18 146/84 H 94 L 07/14/20 22:20 81 - Problem List & Annotations (1) Incisional hernia of anterior abdominal wall without obstruction or gangrene SNOMED Code(s): 689177783 Code(s): K43.2 - INCISIONAL HERNIA WITHOUT OBSTRUCTION OR GANGRENE Status: Acute Current Visit: Yes - Problem List Review Problem List Initiated/Reviewed/Updated: Yes - My Orders Last 24 Hours: Active Orders 24 hr Category Date Time Status Admission Status [Patient Status] [ADT] Routine ADT 07/15/20 07:52 Active Daily Weight [Height and Weight] [RC] 06 Care 07/14/20 09:10 Active Dressing Change [Wound Care] [RC] DAILY Care 07/14/20 09:10 Active RT Aerosol Therapy [RC] 02,06,10,14,18,22 Care 07/14/20 09:52 Active Chest 2V [CR] Routine Exams 07/14/20 09:09 Taken CULTURE SPUTUM + SMEAR [RM] Routine Lab 07/15/20 09:27 Ordered Albuterol [Proventil Neb Soln] Med 07/14/20 10:00 Active 2.5 mg NEB Q4H Furosemide [Lasix] Med 07/15/20 14:00 Active 20 mg PO BIDDIURETIC Pantoprazole [ProTONIX] Med 07/16/20 07:30 Active 40 mg PO ACBREAKFAST Sodium Chloride 0.9% [Normal Saline] 250 ml Med 07/14/20 13:30 Active IV ASDIRECTED Convert IV to Saline Lock [OM.PC] Routine Oth 07/14/20 09:14 Ordered Convert IV to Saline Lock [OM.PC] Routine Oth 07/15/20 09:28 Ordered Transfuse RBC [Transfuse Red Blood Cells] [COMM] Oth 07/14/20 10:39 Ordered Routine Medication Orders Hydrocodone Bitart/Acetaminophen ([place] 325-5 Mg) 1 tab PO Q4H PRN PRN Reason: Pain Last Admin: 07/15/20 07:04 Dose: 1 tab Documented by: Admin: 07/15/20 01:43 Dose: 1 tab Documented by: Admin: 07/14/20 19:48 Dose: 1 tab Documented by: Admin: 07/14/20 13:21 Dose: 1 tab Documented by: Admin: 07/14/20 08:26 Dose: 1 tab Documented by: [id number] Admin: 07/14/20 01:18 Dose: 1 tab Documented by: Admin: 07/13/20 17:21 Dose: 1 tab Documented by: [id number] Admin: 07/13/20 12:54 Dose: 1 tab Documented by: [id number] Albuterol (Proventil Neb Soln) 2.5 mg NEB Q4H [facility] Last Admin: 07/15/20 05:45 Dose: 2.5 mg Documented by: Admin: 07/15/20 01:44 Dose: 2.5 mg Documented by: Admin: 07/14/20 22:09 Dose: 2.5 mg Documented by: Admin: 07/14/20 17:24 Dose: 2.5 mg Documented by: Admin: 07/14/20 14:09 Dose: 2.5 mg Documented by: Admin: 07/14/20 10:46 Dose: 2.5 mg Documented by: AURELIO Amlodipine Besylate (Norvasc) 5 mg PO DAILY [facility] Last Admin: 07/14/20 08:27 Dose: 5 mg Documented by: Admin: 07/13/20 13:25 Dose: 5 mg Documented by: [id number] Anastrozole (Arimidex) 1 mg PO DAILY [facility] Last Admin: 07/14/20 08:27 Dose: 1 mg Documented by: [id number] Admin: 07/13/20 13:26 Dose: 1 mg Documented by: [id number] Furosemide (Lasix) 20 mg PO BIDDIURETIC [facility] Hydroxyzine Pamoate (Vistaril) 50 mg PO ONETIME PRN PRN Reason: Pain Sodium Chloride (Normal Saline) 250 mls @ 100 mls/hr IV ASDIRECTED [facility] Last Admin: 07/14/20 13:38 Dose: 100 mls/hr Documented by: BARBARA Ketorolac Tromethamine (Toradol) 15 mg IVPUSH Q6H [facility] Stop: 07/18/20 18:46 Last Admin: 07/15/20 06:56 Dose: 15 mg Documented by: Admin: 07/15/20 01:06 Dose: 15 mg Documented by: Admin: 07/14/20 19:33 Dose: 15 mg Documented by: Admin: 07/14/20 12:49 Dose: 15 mg Documented by: Admin: 07/14/20 06:46 Dose: 15 mg Documented by: Admin: 07/14/20 01:13 Dose: 15 mg Documented by: Admin: 07/13/20 18:56 Dose: 15 mg Documented by: BARBARA Lorazepam (Ativan) 1 mg IVPUSH Q6H PRN PRN Reason: Pain Metoprolol Succinate (Toprol Xl) 25 mg PO DAILY [facility] Last Admin: 07/14/20 08:27 Dose: 25 mg Documented by: Admin: 07/13/20 13:25 Dose: 25 mg Documented by: [id number] Naloxone HCl (Narcan) 0.4 mg IVPUSH Q2M PRN PRN Reason: Respiratory Distress Ondansetron HCl (Zofran) 4 mg IVPUSH Q6H PRN PRN Reason: Nausea/Vomiting Pantoprazole Sodium (Protonix) 40 mg PO ACBREAKFAST [facility] Sodium Chloride (Saline Flush) 10 ml FLUSH ASDIRECTED PRN PRN Reason: Keep Vein Open Last Admin: 07/15/20 01:44 Dose: 10 ml Documented by: Admin: 07/14/20 19:37 Dose: 10 ml Documented by: Admin: 07/14/20 16:17 Dose: 10 ml Documented by: Admin: 07/14/20 12:52 Dose: 10 ml Documented by: Admin: 07/14/20 05:30 Dose: 10 ml Documented by: Admin: 07/12/20 23:30 Dose: 10 ml Documented by: Admin: 07/11/20 16:28 Dose: 10 ml Documented by: Admin: 07/11/20 16:27 Dose: 10 ml Documented by: [email or web address] - Assessment Assessment (Free Text/Narrative):: O2 sats are an issue will consult hospitalist
[2020-07-15] MEDS: amLODIPine 5 MG Tab PO SCH (10:04)
[2020-07-15] MEDS: Anastrozole 1 MG Tab PO SCH (10:04)
[2020-07-15] MEDS: Metoprolol Succinate 25 MG Tab.ER PO SCH (10:05)
[2020-07-15] MEDS: Furosemide 20 MG Tab**OWN MED PO SCH (11:41)
[2020-07-15] MEDS: Furosemide 20 MG Tab PO SCH (13:20)
--- NOTE | 2020-07-15 17:58 | CONS ---
DATE OF CONSULTATION: 07/15/2020 HISTORY: Ms. Uriostegui is a 69-year-old woman with a history of breast cancer, post radiation and lumpectomies, bilateral renal cancer with right nephrectomy and left tumor cryoablation, and history of hypertension and mild aortic stenosis. Ms. Uriostegui underwent abdominal hernia repair. She had to go back to the operating room because of localized abdominal bleeding, which was accomplished on 07/11/2020. She subsequently has been healing satisfactory. However, she has required continuous oxygen supplementation. She did not require oxygen in the preop. She has had COPD. She is not currently having any symptoms of acute infection, fever, chills, chest pain, etc. She underwent echocardiogram as a cardiac evaluation preoperatively in December of 2018, this was a stress echo done by Dr. Castro and showed normal study without symptoms and low risk finding. Plain echocardiogram revealed a mild aortic stenosis, but an ejection fraction of 60% and good cardiac function. The patient is examined today in her room, sitting up in a chair. She states she feels well. She denies pain. She is not having fever. She has been up walking and denies symptomatic shortness of breath. PHYSICAL EXAMINATION: GENERAL: She is alert and comfortable. Mouth is dry. Oxygen cannula is in place. LUNGS: Have rales bilaterally up to the mid upper lung gonzales. Breath sounds are present to the bases. HEART: Regular without murmur or gallop heard. ABDOMEN: Soft and nontender. EXTREMITIES: Show trace edema at the ankles. VITAL SIGNS: Review of her vital signs showed that on July 10, she had a weight of 195 pounds and weight this morning was 207, up 12 pounds. LABORATORY DATA: Shows white count 16,100. This is down from 18,000 two days earlier. Hemoglobin 7.6 with normal differential. Electrolytes normal. BUN 13, creatinine 1.5. Chest x-ray shows cardiomegaly. ASSESSMENT: Cardiomegaly with congestive heart failure resulting in oxygen requirement. PLAN: We will diurese her and follow up kidney function testing. Anticipate she will be able to get off her oxygen, increase activity, and be discharged home within 24 to 48 hours. /[id number] RO/MODL
[2020-07-16] MEDS: Ketorolac 15 MG/ML SDV IVPUSH SCH ×3 (01:10→13:41)
[2020-07-16] MEDS: Sodium Chloride 0.9% 10 ML Syringe FLUSH PRN ×3 (01:10→13:40)
[2020-07-16] MEDS: Albuterol 0.083% 2.5 MG/3 ML Neb Soln NEB SCH ×4 (01:12→13:46)
[2020-07-16] MEDS ORDERED: Pantoprazole 40 MG Tab.CR PO SCH (07:30)
[2020-07-16] MEDS: Acetaminophen/HYDROcodone 325-5 MG Tab PO PRN ×2 (08:19→13:28)
[2020-07-16] MEDS: Furosemide 20 MG Tab PO SCH ×2 (08:21→13:47)
--- NOTE | 2020-07-16 08:31 | PCM.SURGPN ---
- General Info Date of Service: 07/16/20 POD#: 5 Functional Status: Reports: Pain Controlled, Tolerating Diet, Ambulating - Review of Systems General: Reports: No Symptoms Pulmonary: Reports: No Symptoms, Other (O2 sats have improved with diuresis. ) Cardiovascular: Reports: No Symptoms - Patient Data Vitals - Most Recent: Last Vital Signs Temp 98.5 F 07/16/20 06:00 Pulse 86 07/16/20 06:00 Resp 20 07/16/20 06:00 BP 157/83 H 07/16/20 06:00 Pulse Ox 96 07/16/20 06:00 Weight - Most Recent: 86.999 kg I&O - Last 24 Hours: Intake & Output 07/15/20 07/16/20 07/16/20 22:59 06:59 14:59 Intake Total 400 Output Total 2600 2150 Balance -2200 -2150 Lab Results Last 24 Hrs: Laboratory Results - last 24 hr 07/16/20 07/16/20 Range/Units 06:10 06:10 WBC 14.0 H (4.5-12.0) X10-3/uL RBC 3.17 L (3.23-5.20) x10(6)uL Hgb 9.3 L (11.5-15.5) g/dL Hct 27.7 L (30.0-51.3) % MCV 87.3 (80-96) fL MCH 29.5 (27.7-33.6) pg MCHC 33.7 (32.2-35.4) g/dL RDW 14.2 (11.5-15.5) % Plt Count 392 H (125-369) X10(3)uL MPV 7.0 L (7.4-10.4) fL Neut % (Auto) 69.5 (46-82) % Lymph % (Auto) 13.6 (13-37) % [place] % (Auto) 4.7 (4-12) % Eos % (Auto) 11 H (1.0-5.0) % Baso % (Auto) 1 (0-2) % Neut # (Auto) 9.7 H (1.6-8.3) # Lymph # (Auto) 1.9 (0.6-5.0) # [place] # (Auto) 0.7 (0.0-1.3) # Eos # (Auto) 1.5 H (0.0-0.8) # Baso # (Auto) 0.2 (0.0-0.2) # Sodium 142 (135-145) mmol/L Potassium 3.0 L (3.5-5.3) mmol/L Chloride 100 (100-110) mmol/L Carbon Dioxide 36 H (21-32) mmol/L BUN 11 (7-18) mg/dL Creatinine 1.3 H (0.55-1.02) mg/dL Est Cr Clr Drug Dosing 28.51 mL/min Estimated GFR (MDRD) 40 L (>60) BUN/Creatinine Ratio 8.5 L (9-20) Glucose 95 (80-116) mg/dL Calcium 8.7 (8.6-10.2) mg/dL Phosphorus 4.5 (2.6-4.6) mg/dL Albumin 2.4 L (3.2-4.6) g/dL Benjamin Results Last 24 Hrs: Microbiology 07/15/20 11:10 Gram Stain - Final Sputum - Expectorated Sputum Culture - Preliminary Med Orders - Current: Current Medications Hydrocodone Bitart/Acetaminophen ([place] 325-5 Mg) 1 tab PO Q4H PRN PRN Reason: Pain Last Admin: 07/16/20 08:19 Dose: 1 tab Documented by: Albuterol (Proventil Neb Soln) 2.5 mg NEB Q4H [facility] Last Admin: 07/16/20 06:04 Dose: 2.5 mg Documented by: Amlodipine Besylate (Norvasc) 5 mg PO DAILY [facility] Last Admin: 07/15/20 10:04 Dose: 5 mg Documented by: Anastrozole (Arimidex) 1 mg PO DAILY [facility] Last Admin: 07/15/20 10:04 Dose: 1 mg Documented by: Furosemide (Lasix) 20 mg PO BIDDIURETIC [facility] Last Admin: 07/16/20 08:21 Dose: 20 mg Documented by: Hydroxyzine Pamoate (Vistaril) 50 mg PO ONETIME PRN PRN Reason: Pain Sodium Chloride (Normal Saline) 250 mls @ 100 mls/hr IV ASDIRECTED [facility] Last Admin: 07/14/20 13:38 Dose: 100 mls/hr Documented by: Ketorolac Tromethamine (Toradol) 15 mg IVPUSH Q6H [facility] Stop: 07/18/20 18:46 Last Admin: 07/16/20 06:05 Dose: 15 mg Documented by: Lorazepam (Ativan) 1 mg IVPUSH Q6H PRN PRN Reason: Pain Metoprolol Succinate (Toprol Xl) 25 mg PO DAILY [facility] Last Admin: 07/15/20 10:05 Dose: 25 mg Documented by: Naloxone HCl (Narcan) 0.4 mg IVPUSH Q2M PRN PRN Reason: Respiratory Distress Ondansetron HCl (Zofran) 4 mg IVPUSH Q6H PRN PRN Reason: Nausea/Vomiting Pantoprazole Sodium (Protonix) 40 mg PO ACBREAKFAST [facility] Last Admin: 07/16/20 06:54 Dose: 40 mg Documented by: Potassium Chloride (Klor-Con 10) 10 meq PO DAILY [facility] Sodium Chloride (Saline Flush) 10 ml FLUSH ASDIRECTED PRN PRN Reason: Keep Vein Open Last Admin: 07/16/20 06:05 Dose: 10 ml Documented by: Discontinued Medications Bupivacaine HCl (Marcaine 0.5%) 10 ml INJECT .STK-MED ONE Stop: 07/11/20 08:41 Last Admin: 07/11/20 08:40 Dose: 10 ml Documented by: Bupivacaine HCl (Marcaine 0.5%) 10 ml INJECT .STK-MED ONE Stop: 07/11/20 12:57 Last Admin: 07/11/20 12:56 Dose: 10 ml Documented by: Fentanyl Citrate (Fentanyl In Ns 300 Mcg/30 Ml Security Threat Analyst) 0 mcg IV ASDIRECTED [facility]; Protocol Stop: 07/13/20 10:00 Last Admin: 07/13/20 04:05 Dose: 300 mcg Documented by: Furosemide (Lasix) 20 mg PO DAILY [facility] Last Admin: 07/15/20 11:41 Dose: Not Given Documented by: Furosemide (Lasix) 40 mg IVPUSH NOW ONE Stop: 07/15/20 09:27 Last Admin: 07/15/20 10:12 Dose: 40 mg Documented by: Lactated Ringer's (Ringers, Lactated) 1,000 mls @ 50 mls/hr IV ASDIRECTED [facility] Last Admin: 07/13/20 15:32 Dose: 50 mls/hr Documented by: Cefazolin Sodium/Dextrose 2 gm (/ Premix) 50 mls @ 100 mls/hr IV ONETIME ONE Stop: 07/11/20 08:29 Last Admin: 07/11/20 08:16 Dose: 100 mls/hr Documented by: Sodium Chloride (Normal Saline) 1,000 mls @ 100 mls/hr IV ASDIRECTED [facility] Ketorolac Tromethamine (Toradol) 30 mg IVPUSH Q6H [facility] Stop: 07/18/20 18:24 Last Admin: 07/13/20 22:02 Dose: Not Given Documented by: Lidocaine/Epinephrine (Xylocaine 1% With Epinephrine 1:100,000) 10 ml INJECT .STK-MED ONE Stop: 07/11/20 08:41 Last Admin: 07/11/20 08:40 Dose: 10 ml Documented by: Lidocaine/Epinephrine (Xylocaine 1% With Epinephrine 1:100,000) 10 ml INJECT .STK-MED ONE Stop: 07/11/20 12:57 Last Admin: 07/11/20 12:56 Dose: 10 ml Documented by: Metolazone (Zaroxolyn) 2.5 mg PO ONETIME ONE Stop: 07/15/20 09:30 Last Admin: 07/15/20 10:10 Dose: 2.5 mg Documented by: Omeprazole [ Omeprazole] 20 Mg Own Med 20 mg PO ACBREAKFAST [facility] Last Admin: 07/15/20 07:48 Dose: 20 mg Documented by: - Exam Wound/Incisions: Dressing Dry and Intact Lungs: Clear to Auscultation, Normal Respiratory Effort Cardiovascular: Regular Rate, Regular Rhythm GI/Abdominal Exam: Normal Bowel Sounds, Soft, Non-Tender Skin: Warm, Dry, Intact Sepsis Event Note - Evaluation Sepsis Screening Result: No Definite Risk - Focused Exam Vital Signs: Vital Signs Temp Pulse Resp BP Pulse Ox Pulse Ox 07/16/20 06:00 98.5 F 86 20 157/83 H 96 07/16/20 01:20 92 L 07/16/20 01:15 98 F 92 20 142/84 H 92 L 07/15/20 22:02 93 L 07/15/20 21:45 98 F 88 20 147/80 H 95 - Problem List & Annotations (1) Incisional hernia of anterior abdominal wall without obstruction or gangrene SNOMED Code(s): 643830415 Code(s): K43.2 - INCISIONAL HERNIA WITHOUT OBSTRUCTION OR GANGRENE Status: Acute Current Visit: Yes (2) CHF (congestive heart failure) SNOMED Code(s): 60759058 Code(s): I50.9 - HEART FAILURE, UNSPECIFIED Status: Acute Current Visit: Yes Annotation/Comment:: appears to be responding to her diuresis Qualifiers: Heart failure type: unspecified Heart failure chronicity: unspecified Qualified Code(s): I50.9 - Heart failure, unspecified - Problem List Review Problem List Initiated/Reviewed/Updated: Yes - My Orders Last 24 Hours: Active Orders 24 hr Category Date Time Status Admission Status [Patient Status] [ADT] Routine ADT 07/15/20 07:52 Active Notify Provider Consults [RC] ASDIRECTED Care 07/15/20 10:03 Active Consult to Physician [CONS] Routine Cons 07/15/20 10:02 Ordered CULTURE SPUTUM + SMEAR [RM] Routine Lab 07/15/20 11:10 Results Furosemide [Lasix] Med 07/15/20 14:00 Active 20 mg PO BIDDIURETIC Pantoprazole [ProTONIX] Med 07/16/20 07:30 Active 40 mg PO ACBREAKFAST Potassium Chloride [Klor-Con 10] Med 07/16/20 09:00 Active 10 meq PO DAILY Convert IV to Saline Lock [OM.PC] Routine Oth 07/15/20 09:28 Ordered Medication Orders Hydrocodone Bitart/Acetaminophen ([place] 325-5 Mg) 1 tab PO Q4H PRN PRN Reason: Pain Last Admin: 07/16/20 08:19 Dose: 1 tab Documented by: Admin: 07/15/20 21:59 Dose: 1 tab Documented by: Admin: 07/15/20 16:37 Dose: 1 tab Documented by: Admin: 07/15/20 07:04 Dose: 1 tab Documented by: Admin: 07/15/20 01:43 Dose: 1 tab Documented by: Admin: 07/14/20 19:48 Dose: 1 tab Documented by: Admin: 07/14/20 13:21 Dose: 1 tab Documented by: Admin: 07/14/20 08:26 Dose: 1 tab Documented by: Admin: 07/14/20 01:18 Dose: 1 tab Documented by: Admin: 07/13/20 17:21 Dose: 1 tab Documented by: Admin: 07/13/20 12:54 Dose: 1 tab Documented by: AURELIO Albuterol (Proventil Neb Soln) 2.5 mg NEB Q4H [facility] Last Admin: 07/16/20 06:04 Dose: 2.5 mg Documented by: Admin: 07/16/20 01:12 Dose: 2.5 mg Documented by: Admin: 07/15/20 21:56 Dose: 2.5 mg Documented by: Admin: 07/15/20 18:07 Dose: 2.5 mg Documented by: Admin: 07/15/20 13:28 Dose: 2.5 mg Documented by: Admin: 07/15/20 10:30 Dose: 2.5 mg Documented by: Admin: 07/15/20 05:45 Dose: 2.5 mg Documented by: Admin: 07/15/20 01:44 Dose: 2.5 mg Documented by: Admin: 07/14/20 22:09 Dose: 2.5 mg Documented by: Admin: 07/14/20 17:24 Dose: 2.5 mg Documented by: Admin: 07/14/20 14:09 Dose: 2.5 mg Documented by: Admin: 07/14/20 10:46 Dose: 2.5 mg Documented by: AURELIO Amlodipine Besylate (Norvasc) 5 mg PO DAILY [facility] Last Admin: 07/15/20 10:04 Dose: 5 mg Documented by: Admin: 07/14/20 08:27 Dose: 5 mg Documented by: Admin: 07/13/20 13:25 Dose: 5 mg Documented by: AURELIO Anastrozole (Arimidex) 1 mg PO DAILY [facility] Last Admin: 07/15/20 10:04 Dose: 1 mg Documented by: Admin: 07/14/20 08:27 Dose: 1 mg Documented by: Admin: 07/13/20 13:26 Dose: 1 mg Documented by: AURELIO Furosemide (Lasix) 20 mg PO BIDDIURETIC [facility] Last Admin: 07/16/20 08:21 Dose: 20 mg Documented by: Admin: 07/15/20 13:20 Dose: 20 mg Documented by: GODWIN Hydroxyzine Pamoate (Vistaril) 50 mg PO ONETIME PRN PRN Reason: Pain Sodium Chloride (Normal Saline) 250 mls @ 100 mls/hr IV ASDIRECTED [facility] Last Admin: 07/14/20 13:38 Dose: 100 mls/hr Documented by: BARBARA Ketorolac Tromethamine (Toradol) 15 mg IVPUSH Q6H [facility] Stop: 07/18/20 18:46 Last Admin: 07/16/20 06:05 Dose: 15 mg Documented by: Admin: 07/16/20 01:10 Dose: 15 mg Documented by: Admin: 07/15/20 18:18 Dose: 15 mg Documented by: Admin: 07/15/20 13:18 Dose: 15 mg Documented by: Admin: 07/15/20 06:56 Dose: 15 mg Documented by: Admin: 07/15/20 01:06 Dose: 15 mg Documented by: Admin: 07/14/20 19:33 Dose: 15 mg Documented by: Admin: 07/14/20 12:49 Dose: 15 mg Documented by: Admin: 07/14/20 06:46 Dose: 15 mg Documented by: Admin: 07/14/20 01:13 Dose: 15 mg Documented by: Admin: 07/13/20 18:56 Dose: 15 mg Documented by: BARBARA Lorazepam (Ativan) 1 mg IVPUSH Q6H PRN PRN Reason: Pain Metoprolol Succinate (Toprol Xl) 25 mg PO DAILY [facility] Last Admin: 07/15/20 10:05 Dose: 25 mg Documented by: Admin: 07/14/20 08:27 Dose: 25 mg Documented by: Admin: 07/13/20 13:25 Dose: 25 mg Documented by: AURELIO Naloxone HCl (Narcan) 0.4 mg IVPUSH Q2M PRN PRN Reason: Respiratory Distress Ondansetron HCl (Zofran) 4 mg IVPUSH Q6H PRN PRN Reason: Nausea/Vomiting Pantoprazole Sodium (Protonix) 40 mg PO ACBREAKFAST [facility] Last Admin: 07/16/20 06:54 Dose: 40 mg Documented by: ZOEY Potassium Chloride (Klor-Con 10) 10 meq PO DAILY [facility] Sodium Chloride (Saline Flush) 10 ml FLUSH ASDIRECTED PRN PRN Reason: Keep Vein Open Last Admin: 07/16/20 06:05 Dose: 10 ml Documented by: Admin: 07/16/20 01:10 Dose: 10 ml Documented by: Admin: 07/15/20 18:20 Dose: 10 ml Documented by: Admin: 07/15/20 13:17 Dose: 10 ml Documented by: Admin: 07/15/20 10:11 Dose: 10 ml Documented by: Admin: 07/15/20 01:44 Dose: 10 ml Documented by: Admin: 07/14/20 19:37 Dose: 10 ml Documented by: Admin: 07/14/20 16:17 Dose: 10 ml Documented by: Admin: 07/14/20 12:52 Dose: 10 ml Documented by: Admin: 07/14/20 05:30 Dose: 10 ml Documented by: Admin: 07/12/20 23:30 Dose: 10 ml Documented by: Admin: 07/11/20 16:28 Dose: 10 ml Documented by: Admin: 07/11/20 16:27 Dose: 10 ml Documented by: MILDRED - Plan Plan (Free Text/Narrative):: anticipate discharge next 24 48 hrs
--- NOTE | 2020-07-16 08:49 | PCM.DCSUM1 ---
Discharge Summary - Hospital Course Free Text/Narrative:: Pt was taken to the OR for an ex lap, removal of mesh, and removal of omentum which had been bleeding. Admitted sds/ OC and later converted to inpatient. Pain control, which had been an issue in recovery room continued to be an issue. She was placed on a Fentanyl BRAND ATTENDANT pump and this gave her adequate pain control for the first 48 hrs after surgery. The BRAND ATTENDANT was stopped and she was placed on oral pain medications. Her at home meds were started as well. O2 saturation became an issue and we were unable to wean her off. She was noted to have a low Hgb and was transfused an unit of PRBC on the indication that she has a hx of heart disease as well as the low O2 sats. This did improve her condition slightly but enough to allow discharge to home. Consultation was obtained with Hospitalist service. Her weight was noted to be up and she was diuresed with marked improvement of her O2 sats and she is now off her O2. K did drop and has been addressed with oral supplementation. She has demonstrated bowel function and continues to tolerate a regular diet. Diagnosis: Stroke: No - Discharge Data Discharge Date: 07/16/20 Discharge Disposition: Home, Self-Care 01 Condition: Good - Referral to Home Health Primary Care Physician: Esthela Molina NP - Discharge Diagnosis/Problem(s) (1) Incisional hernia of anterior abdominal wall without obstruction or gangrene SNOMED Code(s): 546081435 ICD Code: K43.2 - INCISIONAL HERNIA WITHOUT OBSTRUCTION OR GANGRENE Status: Acute Current Visit: Yes (2) CHF (congestive heart failure) SNOMED Code(s): 35090259 ICD Code: I50.9 - HEART FAILURE, UNSPECIFIED Status: Acute Current Visit: Yes Problem Details: appears to be responding to her diuresis Qualifiers: Heart failure type: unspecified Heart failure chronicity: unspecified Qualified Code(s): I50.9 - Heart failure, unspecified - Patient Summary/Data Operative Procedure(s) Performed: ex lap with removal of mesh. removal of omentum. primary closure Consults: Consultations 07/15/20 10:02 Consult to Physician [CONS] Routine Consulting Provider: Kalyan Smith Call Completed to Consulting Physician: Yes Reason for Consult: poor O2 sats Hospital Course: see above - Patient Instructions Diet: Usual Diet as Tolerated, No Alcoholic Beverages Activity: No Strenuous Activities, Rest and Relax Today Driving: Do Not Drive (for 7 days ) Showering/Bathing: Shower in AM Notify Provider of: Fever, Increased Pain - Discharge Plan *PRESCRIPTION DRUG MONITORING PROGRAM REVIEWED*: Yes *COPY OF PRESCRIPTION DRUG MONITORING REPORT IN PATIENT SIMA: No Prescriptions/Med Rec: Acetaminophen/HYDROcodone [[place] 325-5 MG] 1 - 2 tab PO Q6H PRN #16 tab PRN Reason: Pain Home Medications: Home Meds Omeprazole 20 mg PO DAILY 01/28/16 [History] Anastrozole [Arimidex] 1 mg PO DAILY 07/10/20 [History] Calcium Carbonate [Calcium] 600 mg PO BID 07/10/20 [History] Cholecalciferol (Vitamin D3) [Vitamin D3] 2,000 unit PO DAILY 07/10/20 [History] Furosemide [Lasix] 20 mg PO DAILY 07/10/20 [History] Ketorolac [Acular 0.5% Ophth Soln] 1 drop OP QID 07/10/20 [History] Melatonin 3 mg PO BEDTIME 07/10/20 [History] Metoprolol Succinate [Toprol Xl] 25 mg PO DAILY 07/10/20 [History] amLODIPine [Norvasc] 5 mg PO DAILY 07/10/20 [History] atorvaSTATin Calcium [Lipitor] 20 mg PO DAILY 07/10/20 [History] calcitrioL [Rocaltrol] 0.25 mcg PO Q48H 07/10/20 [History] Acetaminophen/HYDROcodone [[place] 325-5 MG] 1 - 2 tab PO Q6H PRN #16 tab 07/11/20 [Rx] Patient Handouts: Open Hernia Repair, Adult, Fall Prevention in Hospitals, Adult, Venous Thromboembolism Prevention Referrals: Jose Mckenna MD [Physician] - 07/22/20 () - Discharge Summary/Plan Comment DC Time >30 min.: No - Patient Data Vitals - Most Recent: Last Vital Signs Temp 98.5 F 07/16/20 06:00 Pulse 86 07/16/20 06:00 Resp 20 07/16/20 06:00 BP 157/83 H 07/16/20 06:00 Pulse Ox 96 07/16/20 06:00 Weight - Most Recent: 86.999 kg I&O - Last 24 hours: Intake & Output 07/15/20 07/16/20 07/16/20 22:59 06:59 14:59 Intake Total 400 Output Total 2600 2150 Balance -2199 -2149 Lab Results - Last 24 hrs: Laboratory Results - last 24 hr 07/16/20 07/16/20 Range/Units 06:10 06:10 WBC 14.0 H (4.5-12.0) X10-3/uL RBC 3.17 L (3.23-5.20) x10(6)uL Hgb 9.3 L (11.5-15.5) g/dL Hct 27.7 L (30.0-51.3) % MCV 87.3 (80-96) fL MCH 29.5 (27.7-33.6) pg MCHC 33.7 (32.2-35.4) g/dL RDW 14.2 (11.5-15.5) % Plt Count 392 H (125-369) X10(3)uL MPV 7.0 L (7.4-10.4) fL Neut % (Auto) 69.5 (46-82) % Lymph % (Auto) 13.6 (13-37) % [place] % (Auto) 4.7 (4-12) % Eos % (Auto) 11 H (1.0-5.0) % Baso % (Auto) 1 (0-2) % Neut # (Auto) 9.7 H (1.6-8.3) # Lymph # (Auto) 1.9 (0.6-5.0) # [place] # (Auto) 0.7 (0.0-1.3) # Eos # (Auto) 1.5 H (0.0-0.8) # Baso # (Auto) 0.2 (0.0-0.2) # Sodium 142 (135-145) mmol/L Potassium 3.0 L (3.5-5.3) mmol/L Chloride 100 (100-110) mmol/L Carbon Dioxide 36 H (21-32) mmol/L BUN 11 (7-18) mg/dL Creatinine 1.3 H (0.55-1.02) mg/dL Est Cr Clr Drug Dosing 28.51 mL/min Estimated GFR (MDRD) 40 L (>60) BUN/Creatinine Ratio 8.5 L (9-20) Glucose 95 (80-116) mg/dL Calcium 8.7 (8.6-10.2) mg/dL Phosphorus 4.5 (2.6-4.6) mg/dL Albumin 2.4 L (3.2-4.6) g/dL TUCKER Results - Last 24 hrs: Microbiology 07/15/20 11:10 Gram Stain - Final Sputum - Expectorated Sputum Culture - Preliminary Med Orders - Current: Current Medications Hydrocodone Bitart/Acetaminophen ([place] 325-5 Mg) 1 tab PO Q4H PRN PRN Reason: Pain Last Admin: 07/16/20 08:19 Dose: 1 tab Documented by: Albuterol (Proventil Neb Soln) 2.5 mg NEB Q4H [facility] Last Admin: 07/16/20 06:04 Dose: 2.5 mg Documented by: Amlodipine Besylate (Norvasc) 5 mg PO DAILY [facility] Last Admin: 07/15/20 10:04 Dose: 5 mg Documented by: Anastrozole (Arimidex) 1 mg PO DAILY [facility] Last Admin: 07/15/20 10:04 Dose: 1 mg Documented by: Furosemide (Lasix) 20 mg PO BIDDIURETIC [facility] Last Admin: 07/16/20 08:21 Dose: 20 mg Documented by: Hydroxyzine Pamoate (Vistaril) 50 mg PO ONETIME PRN PRN Reason: Pain Sodium Chloride (Normal Saline) 250 mls @ 100 mls/hr IV ASDIRECTED [facility] Last Admin: 07/14/20 13:38 Dose: 100 mls/hr Documented by: Ketorolac Tromethamine (Toradol) 15 mg IVPUSH Q6H [facility] Stop: 07/18/20 18:46 Last Admin: 07/16/20 06:05 Dose: 15 mg Documented by: Lorazepam (Ativan) 1 mg IVPUSH Q6H PRN PRN Reason: Pain Metoprolol Succinate (Toprol Xl) 25 mg PO DAILY [facility] Last Admin: 07/15/20 10:05 Dose: 25 mg Documented by: Naloxone HCl (Narcan) 0.4 mg IVPUSH Q2M PRN PRN Reason: Respiratory Distress Ondansetron HCl (Zofran) 4 mg IVPUSH Q6H PRN PRN Reason: Nausea/Vomiting Pantoprazole Sodium (Protonix) 40 mg PO ACBREAKFAST [facility] Last Admin: 07/16/20 06:54 Dose: 40 mg Documented by: Potassium Chloride (Klor-Con 10) 10 meq PO DAILY [facility] Sodium Chloride (Saline Flush) 10 ml FLUSH ASDIRECTED PRN PRN Reason: Keep Vein Open Last Admin: 07/16/20 06:05 Dose: 10 ml Documented by: Discontinued Medications Bupivacaine HCl (Marcaine 0.5%) 10 ml INJECT .STK-MED ONE Stop: 07/11/20 08:41 Last Admin: 07/11/20 08:40 Dose: 10 ml Documented by: Bupivacaine HCl (Marcaine 0.5%) 10 ml INJECT .STK-MED ONE Stop: 07/11/20 12:57 Last Admin: 07/11/20 12:56 Dose: 10 ml Documented by: Fentanyl Citrate (Fentanyl In Ns 300 Mcg/30 Ml Social Services Aide) 0 mcg IV ASDIRECTED [facility]; Protocol Stop: 07/13/20 10:00 Last Admin: 07/13/20 04:05 Dose: 300 mcg Documented by: Furosemide (Lasix) 20 mg PO DAILY [facility] Last Admin: 07/15/20 11:41 Dose: Not Given Documented by: Furosemide (Lasix) 40 mg IVPUSH NOW ONE Stop: 07/15/20 09:27 Last Admin: 07/15/20 10:12 Dose: 40 mg Documented by: Lactated Ringer's (Ringers, Lactated) 1,000 mls @ 50 mls/hr IV ASDIRECTED [facility] Last Admin: 07/13/20 15:32 Dose: 50 mls/hr Documented by: Cefazolin Sodium/Dextrose 2 gm (/ Premix) 50 mls @ 100 mls/hr IV ONETIME ONE Stop: 07/11/20 08:29 Last Admin: 07/11/20 08:16 Dose: 100 mls/hr Documented by: Sodium Chloride (Normal Saline) 1,000 mls @ 100 mls/hr IV ASDIRECTED [facility] Ketorolac Tromethamine (Toradol) 30 mg IVPUSH Q6H [facility] Stop: 07/18/20 18:24 Last Admin: 07/13/20 22:02 Dose: Not Given Documented by: Lidocaine/Epinephrine (Xylocaine 1% With Epinephrine 1:100,000) 10 ml INJECT .STK-MED ONE Stop: 07/11/20 08:41 Last Admin: 07/11/20 08:40 Dose: 10 ml Documented by: Lidocaine/Epinephrine (Xylocaine 1% With Epinephrine 1:100,000) 10 ml INJECT .STK-MED ONE Stop: 07/11/20 12:57 Last Admin: 07/11/20 12:56 Dose: 10 ml Documented by: Metolazone (Zaroxolyn) 2.5 mg PO ONETIME ONE Stop: 07/15/20 09:30 Last Admin: 07/15/20 10:10 Dose: 2.5 mg Documented by: Omeprazole [ Omeprazole] 20 Mg Own Med 20 mg PO ACBREAKFAST [facility] Last Admin: 07/15/20 07:48 Dose: 20 mg Documented by:
[2020-07-16] MEDS ORDERED: Potassium Chloride 10 MEQ Tab.ER PO SCH (09:00)
[2020-07-16] MEDS: amLODIPine 5 MG Tab PO SCH (11:36)
[2020-07-16] MEDS: Metoprolol Succinate 25 MG Tab.ER PO SCH (11:36)
[2020-07-16] MEDS: Anastrozole 1 MG Tab PO SCH (11:36)
[2020-07-16 16:02] VITALS: BP 128/74
[2020-07-16 16:11] VITALS: PULSE 90
== END 2020-07-16 17:20 | disposition home or self-care (01) | DRG 948 ==
LOC: FB.SDS 06:40 → FB.MS 15:33 → FB.SDS 07-12 11:02 → FB.MS 07-12 11:02 → UNDOADMOB 07-12 11:03 → FB.MS 07-12 11:03 → INTOOBSV 07-15 07:52 → FB.MS 07-15 07:52 → OBSVTOIN 07-15 07:52 → UNDOADMOB 07-15 07:52 → UNDODISIN 07-16 17:20
PROVIDERS: ADMIT Surgery; ATTEND Surgery
PROC: 30233N1 Transfusion of Nonautologous Red Blood Cells into Peripheral Vein, Percutaneous Approach (ICD-10-PCS; principal; 2020-07-15)
DX: G89.18 Other acute postprocedural pain (principal); I50.9 Heart failure, unspecified; I11.0 Hypertensive heart disease with heart failure; J44.9 Chronic obstructive pulmonary disease, unspecified; I35.0 Nonrheumatic aortic (valve) stenosis; Z92.3 Personal history of irradiation; Z90.5 Acquired absence of kidney; Z79.899 Other long term (current) drug therapy; Z88.6 Allergy status to analgesic agent; Z91.018 Allergy to other foods; Z90.49 Acquired absence of other specified parts of digestive tract; Z98.51 Tubal ligation status; Z85.3 Personal history of malignant neoplasm of breast; Z85.53 Personal history of malignant neoplasm of renal pelvis; R10.9 Unspecified abdominal pain
CPT/HCPCS: 00752-QZ; 00790-QZ; 36415; 36430; 71046; 80048; 80069; 85014; 85018; 85025; 86850; 86900; 86901; 86920; 86922; 87070; 87205; 94150; 94640; 94760; 96374; 96376; A9270-GY; C1781; G0378; J0131; J0330; J0690; J1170; J1885; J1940; J2250; J2405; J2704; J3010; J3490; J7030; J7040; J7050; J7120; P9016

== ENCOUNTER 2025-06-19 11:18 | Emergency (ER) | payer MEDICAID, MEDICARE ==
[2025-06-19] MEDS ORDERED: Sodium Chloride 0.9% 10 ML Syringe FLUSH PRN (11:35)
[2025-06-19 12:09] LABS: MEAN PLATELET VOLUME 8.2 fL (7.1-12.4); PLATELET COUNT,PLT 260 x10(3)uL (151-488); RED BLOOD CELL COUNT 4.50 x10(6)uL (3.60-5.20); RED CELL DISTRIBUTION WIDTH 14.0 % (12.3-16.5); WHITE BLOOD CELL COUNT,WBC 22.8 x10-3/uL (3.0-10.3)
[2025-06-19 12:20] LABS: A/G RATIO 0.9; ALANINE AMINOTRANSFERASE,ALT 12 U/L (12-36); ASPARTATE AMNIOTRANSFERASE,AST 12 IU/L (5-25); BILIRUBIN TOTAL 0.9 mg/dL (0.1-1.3); BLOOD UREA NITROGEN,BUN 22 mg/dL (7-18); CARBON DIOXIDE,CO2 21 mmol/L (21-32); CHLORIDE,CL 103 mmol/L (100-110); CREATININE 1.3 mg/dL (0.55-1.02); ESTIMATED GFR 43 mL/min (>60); GLUCOSE RANDOM 118 mg/dL (80-116); PROTEIN TOTAL,TP 6.9 g/dL (6.0-8.0); SODIUM,NA 137 mmol/L (135-145)
[2025-06-19 12:29] LABS: POTASSIUM,K 2.7 mmol/L (3.5-5.3)
[2025-06-19 12:30] LABS: PRO B-TYPE NATRIUR PEPT,BNPPRO 2259.0 pg/mL (<=450)
[2025-06-19 12:36] LABS: LYMPHOCYTES PERCENT MAN 10 % (13-37); MONOCYTES PERCENT MAN 2 % (4-12); SEG NEUTROPHILS PERCENT MAN 88 % (46-82)
[2025-06-19] MEDS: Furosemide 40 MG/4 ML VIAL IVPUSH ONE (13:37)
[2025-06-19 14:37] VITALS: BP 164/91; PULSE 96
== END 2025-06-19 13:50 | disposition home or self-care (01) ==
LOC: FB.ED 11:18
DX: I11.0 Hypertensive heart disease with heart failure (principal); I25.2 Old myocardial infarction; I25.10 Atherosclerotic heart disease of native coronary artery without angina pectoris; I50.9 Heart failure, unspecified; E87.6 Hypokalemia; E66.9 Obesity, unspecified; E78.00 Pure hypercholesterolemia, unspecified; M19.90 Unspecified osteoarthritis, unspecified site; Z79.899 Other long term (current) drug therapy; Z88.8 Allergy status to other drugs, medicaments and biological substances; Z91.018 Allergy to other foods; Z90.49 Acquired absence of other specified parts of digestive tract
CPT/HCPCS: 36415; 71045; 80053; 83880; 84484; 85025; 93005; 93010; 96374; 99284; 99285; A9270; J1938